=== PATIENT | male | born 1965 ===

== ENCOUNTER 2019-02-02 14:42 | Inpatient (IN) | payer MEDICAID, OTHER ==
[2019-02-02 15:40] VITALS: BMI 22.1
--- NOTE | 2019-02-02 15:52 | C.PDOC ---
History Of Present Illness 53 y/o male pt presents to the ER requesting detox for heroin. Pt reports last use was today at noon, IV 3 bags. Pt has no other complaints or associated sx at this time. Time Seen by Provider: 02/02/19 15:36 Chief Complaint (Nursing): Substance Abuse History Per: Patient History/Exam Limitations: no limitations Onset/Duration Of Symptoms: Days Current Symptoms Are (Timing): Still Present Suicide/Self Injury Attempted (Context): None Modifying Factor(s): Other (heroin) Past Medical History Reviewed: Historical Data, Nursing Documentation, Vital Signs Vital Signs: Last Vital Signs Temp 98.1 F 02/02/19 15:23 Pulse 74 02/02/19 15:23 Resp 18 02/02/19 15:23 BP 120/78 02/02/19 15:23 Pulse Ox 98 02/02/19 15:23 - Medical History PMH: Asthma, HIV Family History: States: No Known Family Hx - Social History Hx Alcohol Use: No Hx Substance Use: Yes - Immunization History Hx Tetanus Toxoid Vaccination: Yes Hx Influenza Vaccination: Yes Hx Pneumococcal Vaccination: No Review Of Systems Except As Marked, All Systems Reviewed And Found Negative. Neurological: Negative for: Weakness Psych: Negative for: Suicidal ideation Physical Exam - Physical Exam Additional Physical Exam Comments: Constitutional: No acute distress. Head: Normocephalic. Atraumatic. Eyes: PERRL. ENT: Moist mucous membranes. Neck: Supple. Cardiovascular: Regular rate. Radial pulse 2+ bilaterally. Chest: No tenderness. Respiratory: Clear to auscultation bilaterally. GI: Soft. Nontender. Nondistended. Back: No CVA tenderness. Musculoskeletal: No tenderness or swelling of extremities. Skin: No rash. Neurologic: Alert, no focal deficit. ED Course And Treatment - Laboratory Results Result Diagrams: 02/02/19 16:13 02/02/19 16:13 O2 Sat by Pulse Oximetry: 98 (RA) Pulse Ox Interpretation: Normal Medical Decision Making Medical Decision Making: Plans: -- chem labs -- blood work Disposition - Disposition Disposition: HOSPITALIZED Disposition Time: 17:30 Condition: FAIR Forms: [employer] (Emirati) - Clinical Impression Clinical Impression: Opioid use disorder, severe, dependence - Scribe Statement The provider has reviewed the documentation as recorded by the Eda Hodges Do Provider Attestation: All medical record entries made by the Scribe were at my direction and personally dictated by me. I have reviewed the chart and agree that the record accurately reflects my personal performance of the history, physical exam, medical decision making, and the department course for this patient. I have also personally directed, reviewed, and agree with the discharge instructions and disposition.
[2019-02-02 16:17] LABS: BASO # 0.1 K/uL (0.0-0.2); BASO % 2.1 % (0.0-2.0); EOS # 0.1 K/uL (0.0-0.7); EOS % 1.4 % (0.0-4.0); HEMOGLOBIN 15.5 g/dL (12.0-18.0); LYMPH # 1.2 K/uL (1.0-4.3); LYMPH % 26.8 % (20.0-40.0); MEAN CORPUSCULAR HEMOGLOBIN 30.8 pg (27.0-31.0); MEAN CORPUSCULAR HGB CONC 33.4 g/dL (33.0-37.0); MEAN PLATELET VOLUME 7.5 fL (7.2-11.7); MONO # 0.5 K/uL (0.0-0.8); MONO % 10.4 % (0.0-10.0); NEUT # 2.7 K/uL (1.8-7.0); NEUT % 59.3 % (50.0-75.0); NRBC % 0.2 % (0.0-2.0); RBC 5.03 Mil/uL (4.40-5.90); RED CELL DISTRIBUTION WIDTH 13.3 % (11.5-14.5); WHITE BLOOD COUNT 4.6 K/uL (4.8-10.8)
[2019-02-02 16:54] LABS: ALB/GLOB RATIO 1.4 (1.0-2.1); ALBUMIN 4.5 g/dL (3.5-5.0); ALT/SGPT 59 U/L (21-72); AST/SGOT 46 U/L (17-59); BLOOD UREA NITROGEN 13 mg/dL (9-20); CALCIUM 9.2 mg/dl (8.6-10.4); GFR NON-AFRICAN AMERICAN > 60
[2019-02-02 16:58] LABS: URINE BILIRUBIN NEGATIVE (NEGATIVE); URINE BLOOD NEGATIVE (NEGATIVE); URINE CLARITY Hazy (Clear); URINE COLOR Yellow (YELLOW); URINE GLUCOSE (UA) NORMAL (Normal); URINE HYALINE CAST 0-2 /lpf (0-2); URINE LEUKOCYTE ESTERASE NEG Leu/uL (Negative); URINE PROTEIN NEGATIVE (NEGATIVE); URINE UROBILINOGEN NORMAL mg/dL (0.2-1.0)
[2019-02-02 17:18] LABS: BARBITURATES, UR NEGATIVE (NEGATIVE); BENZODIAZEPINES, UR NEGATIVE (NEGATIVE); OPIATES, UR POSITIVE (NEGATIVE); PHENCYCLIDINE, UR NEGATIVE (NEGATIVE)
--- NOTE | 2019-02-02 22:50 | PCM.BM ---
<Dianne Kimbrough - Last Filed: 02/02/19 22:47> Treatment Plan Problems - Problems identified on initial assessmt denial Date Initiated: 02/02/19 Time Initiated: 22:48 Assessment reference: NA Status: Active defenssive coping Date Initiated: 02/02/19 Time Initiated: 22:49 Assessment reference: NA Status: Active chronic low self esteem Date Initiated: 02/02/19 Time Initiated: 22:50 Assessment reference: NA Status: Active Treatment assets and liabiliti Patient Assests: ADL independent, negotiates basic needs, cognitively intact Patient Liabilities: substance abuse, medical problems - Milieu Protocol Maintain good personal hygiene: daily Encourage regular showers, daily Remind patient to perform daily oral care, daily Assist patient to perform ADL's Conduct patient checks and document Observation sheet: Q15 minutes Maintain personal safety: every shift Educate patient to report safety concerns to staff, every shift Monitor environment for contraband/sharps Medication safety: Monitor for expected outcome, potential side effects: every shift, Assess barriers to learning: every shift, Assess readiness for medication education: every shift <Gadiel Gage - Last Filed: 02/05/19 23:40> - Diagnosis (1) Opioid use disorder, severe, dependence Status: Acute Interventions: 02/05/19 23:40 * Assess 7x/week regarding severity of withdrawal * Educate regarding risks, benefits, side effects and alternatives of medications * Use Motivational Interviewing for abstinence * Use CBT for relapse prevention * Medication management for withdrawal symptoms * Encourage medication assisted treatment *
[2019-02-03] MEDS ORDERED: Aluminum Hydroxide/Magnesium Hydroxide Susp (30 mL) PO PRN (10:32)
[2019-02-03] MEDS: ODEFSEY PO SCH (11:54)
--- NOTE | 2019-02-03 23:06 | CP.PCM.PCO ---
Physician Communication Note - Physician Communication Note Physician Communication Note: Pt started withdrawing significantly. Admitted to detox inpatient now.
--- NOTE | 2019-02-03 23:07 | PCM.PSYCH ---
Initial Psychiatric Evaluation - Initial Psychiatric Evaluation Type of Admission: Voluntary Legal Status: Capacity Chief Complaint (in patient's own words): I am here for detox from my substance use. History of Present Illness and Precipitating Events: Patient is a 53 years old, , unemployed, male who was admitted due to withdrawing from heroine and cannabis. Patient reported history of depression for long time and in the past he was getting Risperdal and trazodone from a provider in [place]. Currently he is noncompliant for some time. Opioid: He started using heroin at 19 years of age, increased gradually up to 1 bundle of heroine daily, IV. His last use was yesterday. He used 3 bags. His longest period of abstinence was 10 years until 1 month ago when he relapsed after getting . His urine drug screen was also positive for methadone. Patient reported that he used methadone once 3 days ago. He got methadone from his friend. Currently patient is withdrawing from heroine including stuffy n ose, body aches, abdominal cramps, sweating, nausea and diarrhea. His COWS score was 10. Cocaine: Started at 19 years of age, was using one bag of cocaine daily, IV by mixing with heroin. He relapsed on cocaine 1 month ago after 10 years of abstinence. Last used yesterday. Cannabis: He started using cannabis at 14 years of age and was smoking daily. He was guarded about further detail about cannabis. Cigarettes: He is smoking 1/2 pack of cigarettes daily and is requesting for nicotine patch. Patient was born in [place] and has eighth grade of education. He migrated to [facility] in 1990. He is and has 6 grownup children. He is not working for last 1 month. 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 Patient moved to [place] from [place] about a month ago and is currently living with his mother. Current Medications: Active Medications Generic Name Dose Route Start Last Admin Trade Name Freq PRN Reason Stop Dose Admin Al Hydrox/Mg Hydrox/Simethicone 30 ml 02/03/19 10:32 Maalox 30 Ml PO TID PRN Indigestion / Heartburn Clonidine HCl 0.1 mg 02/03/19 10:32 02/03/19 21:13 Catapres PO 0.1 mg Q4 PRN Administration COWS Score More or Equal to 5 Dicyclomine HCl 10 mg 02/03/19 10:32 Bentyl PO Q6 PRN Muscle spasm Home Med 1 tab 02/03/19 10:00 02/03/19 11:54 Patient's Own Medication PO 1 tab DAILY THEODORA Administration Hydroxyzine HCl 25 mg 02/03/19 10:35 02/03/19 21:13 Atarax PO 25 mg Q6 PRN Administration Anxiety Ibuprofen 600 mg 02/03/19 10:32 Motrin Tab PO Q6 PRN Pain, moderate (4-7) Loperamide HCl 2 mg 02/03/19 10:32 Imodium PO Q8 PRN Diarrhea Methadone HCl 15 mg 02/04/19 10:00 Methadone PO 02/07/19 09:59 Q24H THEODORA Taper Nicotine 1 patch 02/03/19 10:45 02/03/19 11:53 Nicoderm Cq TD 1 patch DAILY THEODORA Administration Ondansetron HCl 4 mg 02/03/19 10:32 Zofran Tab PO Q8 PRN Nausea/Vomiting Trazodone HCl 50 mg 02/02/19 20:20 02/03/19 21:13 Desyrel PO 50 mg HS PRN Administration insomnia Past Psychiatric History - Past Psychiatric History Previous Treatment History: Intensive Outpatient History of Abuse: None reported History of ETOH/Drug Use: See HPI History of Family Illness: Reported his paternal grandfather, his father and mother were alcoholic. Pertinent Medical Hx (Current Medical&Sleep Prob, Allergies): Allergies Allergy/AdvReac Type Severity Reaction Status Date / Time No Known Allergies Allergy Verified 02/02/19 15:22 Emtricitab/Rilpiviri/Tenof Ala [Odefsey Tablet] 1 each PO DAILY 02/02/19 HIV Review of Systems - Psychiatric Psychiatric: As Per HPI, Anxiety, Change in Appetite, Depression Mental Status Examination - Personal Presentation Personal Presentation: Looks stated age - Affect Affect: Other (Appropriate) - Motor Activity Motor Activity: Calm - Reliability in Providing Information Reliability in Providing Information: Fair - Speech Speech: Organized - Mood Mood: Depressed, Anxious - Formal Thought Process Formal Thought Process: No Impairment - Hallucinations/Delusions Hallucinations: Other (None reported) Delusions: Other - Obsessions/Compulsions Obsessions: None Compulsions: None - Cognitive Functions Orientation: Person, Place, Situation, Time Sensorium: Alert Attention/Concentration: Attentive Abstract Thinking: [place] Estimate of Intelligence: Average Judgement: Intact, as evidence by: Insight regarding need for hospitalization Memory: Recent intact, as evidence by: Ability to recall events of the day, Remote intact, as evidenced by: Ability to recall historical events - Risk Risk: Withdrawal, Diminished functioning - Strength & Assets Inventory Strength & Assets Inventory: Family support, Cooperative - Limitations Limitations: Other (Lives with mother) DSM 5 DX - DSM 5 DSM 5 Diagnosis: Opioid withdrawal Opioid use disorder severe Cocaine use disorder severe Cannabis withdrawal Cannabis use disorder severe Major depressive disorder recurrent severe without psychotic features - Recommended/Plan of Treatment Treatment Recommendations and Plan of Treatment: Patient education. Supportive therapy. CBT for relapse prevention. NE for abstinence. We will start methadone taper for opioid withdrawal symptoms. Other PRN medications. Nicotine patch for smoking cessation. Projected ELOS: 4-5 days Discharge Plan and Discharge Criteria: No or minimal withdrawal symptoms - Smoking Cessation Smoking Cessation Initiated: Yes
[2019-02-04] MEDS: ODEFSEY PO SCH (10:08)
[2019-02-04] MEDS ORDERED: Petrolatum Oint Foilpak (5 gm) TOP PRN (10:56)
[2019-02-05] MEDS: ODEFSEY PO SCH (09:19)
--- NOTE | 2019-02-05 10:20 | PCM.PYCHPN ---
Psychiatric Progress Note - Psychiatric Progress Note Patient seen today, length of contact: 18 min Patient Chief Complaint: "Anxious" Problems Identified/Issues Discussed: The pt is seen, chart reviewed, case is discussed with staff. The pt is compliant with medications and reports no side-effects. Symptoms are improving but needs more time to stabilize and to avoid relapse. Pt attends groups and activities. Support given, psycho-education provided. After care discussed. Medication Change: Yes (detox changes daily) Medical Record Reviewed: Yes Mental Status Examination - Cognitive Function Orientation: Person, Place, Situation, Time Memory: Intact Attention: WNL Concentration: Poor Association: WNL Fund of Knowledge: WNL - Mood Mood: Depressed, Anxious - Affect Affect: Constricted - Speech Speech: Appropriate - Formal Thought Process Formal Thought Process: No Impairment - Suicidal Ideation Suicidal Ideation: No - Homicidal Ideation Homicidal Ideation: No Goal/Treatment Plan - Goal/Treatment Plan Need for Continued Stay: Discharge may exacerbated symptoms, Severe functional impairment Progress Toward Problem(s) and Goals/Treatment Plan: Continue medications Support and psychoeducation daily Attend groups and activities daily Individual therapy After care planning by counselors
[2019-02-06] MEDS: ODEFSEY PO SCH (09:13)
--- NOTE | 2019-02-07 08:52 | PCM.PYCHPN ---
Psychiatric Progress Note - Psychiatric Progress Note Patient seen today, length of contact: 16 min Patient Chief Complaint: "Anxious" Problems Identified/Issues Discussed: The pt is seen, chart reviewed, case is discussed with staff. The pt is compliant with medications and reports no side-effects. Symptoms are improving but needs more time to stabilize and to avoid relapse. Pt attends groups and activities. Support given, psycho-education provided. After care discussed. Medication Change: Yes (detox changes daily) Medical Record Reviewed: Yes Mental Status Examination - Cognitive Function Orientation: Person, Place, Situation, Time Memory: Intact Attention: WNL Concentration: Poor Association: WNL Fund of Knowledge: WNL - Mood Mood: Depressed, Anxious - Affect Affect: Constricted - Speech Speech: Appropriate - Formal Thought Process Formal Thought Process: No Impairment - Suicidal Ideation Suicidal Ideation: No - Homicidal Ideation Homicidal Ideation: No Goal/Treatment Plan - Goal/Treatment Plan Need for Continued Stay: Discharge may exacerbated symptoms, Severe functional impairment Progress Toward Problem(s) and Goals/Treatment Plan: Continue medications Support and psychoeducation daily Attend groups and activities daily Individual therapy After care planning by counselors
--- NOTE | 2019-02-07 08:53 | PCM.PYCHDC ---
Mental Status Examination - Mental Status Examination Orientation: Person, Place, Situation, Time Memory: Intact Mood: Anxious Affect: Constricted Speech: Appropriate Attention: WNL Concentration: WNL Association: WNL Fund of Knowledge: WNL Formal Thought Process: No Impairment Suicidal Ideation: No Current Homicidal Ideation?: No Discharge Summary - Discharge Note Reason for Hospitalization: Opioid detox Consultations:: List each consultation separately and include: 1. Reason for request. 2. Findings. 3. Follow-up Summary of Hospital Course include:: 1. Description of specific treatment plan utilized for patients during their course of treatmen. 2. Summarize the time- course for resolution of acute symptoms and/or regressed behaviors. 3. Describe issues identified and worked on during hospitalization. 4. Describe medication utilized. 5. Describe medical problems identified and treated. 6. Reassessment of suicide risk Summary of Hospital Course: The pt was admitted and started on treatment with psychotherapy, support, psychoeducation and medications. IL and CBT used. The pt attended groups and activities, as well as milieu therapy. All the risks and benefits of medications are discussed and the patient understood and agreed. The pt improved with the treatments provided. After care discussed with the patient. He will go to [facility]. - Final Diagnosis (DSM 5) Condition upon Discharge: FAIR DSM 5: Opioid withdrawal Opioid use disorder severe Cocaine use disorder severe Cannabis withdrawal Cannabis use disorder severe Major depressive disorder recurrent severe without psychotic features Disposition: HOME/ ROUTINE Follow-up Treatment Plan: Continue below medications after discharge. Follow after care plan as discussed. Use relapse prevention skills Return to ER or call 911 if suicidal, homicidal or symptoms relapse. Stay away from stress, alcohol and drugs. See primary doctor regularly and get labs. Prescriptions/Medication Reconciliation: hydrOXYzine HCl [Atarax] 25 mg PO DAILY PRN #30 tab PRN Reason: Anxiety traZODone [Desyrel] 50 mg PO HS PRN #30 tab PRN Reason: insomnia
[2019-02-07] MEDS: ODEFSEY PO SCH (09:15)
[2019-02-07 10:27] VITALS: BP 133/79; PULSE 85; RESP 18; TEMP 98.6; O2SAT 95
== END 2019-02-07 09:45 | disposition home or self-care (01) | DRG 772 ==
LOC: C.ER 14:42 → C.7D 18:47 → OBSVTOIN 02-03 08:34
PROC: HZ2ZZZZ Detoxification Services for Substance Abuse Treatment (ICD-10-PCS; principal; 2019-02-03)
PROC: HZ46ZZZ Group Counseling for Substance Abuse Treatment, Psychoeducation (ICD-10-PCS; 2019-02-03)
PROC: GZ3ZZZZ Medication Management (ICD-10-PCS; 2019-02-03)
PROC: HZ59ZZZ Individual Psychotherapy for Substance Abuse Treatment, Supportive (ICD-10-PCS; 2019-02-03)
PROC: HZ80ZZZ Medication Management for Substance Abuse Treatment, Nicotine Replacement (ICD-10-PCS; 2019-02-03)
DX: F11.23 Opioid dependence with withdrawal (principal); F33.2 Major depressive disorder, recurrent severe without psychotic features; F14.20 Cocaine dependence, uncomplicated; Z21 Asymptomatic human immunodeficiency virus [HIV] infection status; F12.23 Cannabis dependence with withdrawal; F17.210 Nicotine dependence, cigarettes, uncomplicated; J45.909 Unspecified asthma, uncomplicated; Z91.19 Patient's noncompliance with other medical treatment and regimen